=== PATIENT | male | born 1975 | race Caucasian/White ===

== ENCOUNTER 2020-05-04 11:09 | Emergency (ER) | payer MEDICAID ==
[~2020-05-04] VITALS: Ht 180.3 cm; Wt 99.8 kg
[~2020-05-04 11:09] MED LIST: MOTRIN800 MG PO; NKHM PO; ROBAXIN750 MG PO
== END 2020-05-04 12:41 | disposition home or self-care (01) ==
LOC: ED 11:09
DX: R03.0 Elevated blood-pressure reading, without diagnosis of hypertension (principal)

== ENCOUNTER 2020-12-22 15:10 | Emergency (ER) | payer MEDICAID ==
[~2020-12-22] VITALS: Ht 177.8 cm; Wt 95.3 kg
[2020-12-22] MEDS ORDERED: ADDERALL 20 MG20 MG PO (15:51)
== END 2020-12-22 18:32 | disposition home or self-care (01) ==
LOC: ED 15:10
DX: S05.01XA Injury of conjunctiva and corneal abrasion without foreign body, right eye, initial encounter (principal); Z79.899 Other long term (current) drug therapy; Z90.49 Acquired absence of other specified parts of digestive tract; W22.8XXA Striking against or struck by other objects, initial encounter; Y93.89 Activity, other specified; Y92.89 Other specified places as the place of occurrence of the external cause; Y99.8 Other external cause status

== ENCOUNTER 2023-03-18 17:33 | Emergency (ER) | payer MEDICAID ==
[~2023-03-18] VITALS: Ht 177.8 cm; Wt 97.5 kg
[~2023-03-18 17:33] MED LIST changes: +ADDERALL 20 MG20 MG PO
== END 2023-03-18 20:03 | disposition home or self-care (01) ==
LOC: ED 17:33
DX: M72.2 Plantar fascial fibromatosis (principal); Z79.899 Other long term (current) drug therapy; Z90.49 Acquired absence of other specified parts of digestive tract